=== PATIENT | female | born 1990 | race Caucasian/White ===

== ENCOUNTER 2017-10-15 21:39 | Emergency (ER) | payer SELFPAY ==
[2017-10-15 21:52] VITALS: BMI 20.2
--- NOTE | 2017-10-15 21:57 | DR.GENAD ---
HPI - PCP Primary Care Physician: [email or web address] - HPI Comment HPI Comment: PATIENT ILLNESS STARTED 9 DAYS AGO AND IS PROGRESSIVELY WORSE. SEEN AT [facility] IN [place] YESTERDAY. BLOOD WORK DONE WAS NORMAL WELL UPPER ABDOMEN US. SHE RETUN TO ED TODAY WITH ELEVATED TEMP AND AND WORSENING OF SYMTOM. - Complaint/Symptoms Chief Complaint Doctors Comments: UPPER ABDOMINAL PAIN RADIATING TO LOWER EXTREMITIES. FEVER. Chief Complaint:: PT STATES" I HAVE PAIN ALL ACROSS MY UPPER ABD AND IT GOES TO MY BACK AND DOWN MY LEGS". PT SEEN IN ED IN [place] YESTERDAY FOR SAME COMPLAINT - Nurses notes reviewed Nurses Notes Review: Yes - Source History Provided: Patient - Mode of Arrival Mode of Arrival: Ambulatory - Timing Onset of Chief Complaint: 10/06/17 Came on: Suddenly - Duration Duration: Constant Duration: Days - Severity Severity: Moderate PMH - PMH Past Medical History: No Past Surgical History: No - Family History History of Family Medical Conditions: Yes Family Medical History: Diabetes Mellitus, Cancer, OR, Coronary Artery Disease, Heart Failure, Hypertension - Social History Does patient currently use any type of tobacco product: No Have you used tobacco products in the last 12 months: Yes Does any household member use tobacco: No Alcohol Use: None Do you use any recreational Drugs:: No Lives With: Family Lives Where: Home - infectious screening In the last 2 months have you had wt loss of >10#?: NO Have you had fever, night sweats or hemotysis?: No Have you traveled outside the country in the last 6 months?: No Isolation: Standard ROS - Review of Systems Constitutional: Fever, Weakness, Fatigue Eyes: No Symptoms Reported. negative: Eye Pain, Discharge ENTM: No Symptoms Reported. negative: Ear Pain, Nose Discharge, Nose Congestion , Throat Pain Respiratoy: No Symptoms Reported. negative: Productive Cough, Short of Breath, Wheezing, Hemoptysis Cardiovascular: No Symptoms Reported. negative: Chest Pain Gastrointestinal/Abdominal: Abdominal Pain, Nausea Genitourinary: No Symptoms Reported. negative: Dysuria, Frequency, Hematuria Neurological: No Symptoms Reported, Headache, Weakness, Dizziness Musculoskeletal: Muscle Pain Integumentary: No Symptoms Reported Hematologic/Lymphatic: No Symptoms Reported Endocrine: No Symptoms Reported All Other Systems: Reviewed and Negative PE - Vital Signs Vitals: Temperature 100 F Pulse Rate [Left Brachial] 109 Pulse Rate 130 Respiratory Rate 16 Blood Pressure [Left Arm] 118/76 Blood Pressure 113/62 O2 Sat by Pulse Oximetry 99 - General Limitations: No Limitations General Appearance: Alert - Head Head Exam: Normal Inspection - Eyes Eye exam: Normal Appearance - ENT ENT Exam: Normal External Ear Exam External Ear Exam: Normal External Inspection TM/Canal Exam: Bilateral Normal Nose Exam: Normal Nose Exam Mouth Exam: Normal Inspection Throat Exam: Normal Inspection - Neck Neck Exam: Normal Inspection - Chest Chest Inspection: Symmetric Chest Wall Rise - Respiratory Respiratory Exam: Normal Lung Sounds Bilat Respiratory Exam: Bilateral Clear to Auscultation - Cardiovascular Cardiovascular Exam: Regular Rate, Normal Rhythm, Normal Heart Sounds - Abdominal Exam Abdominal Exam: Normal Bowel Sounds, Soft, Tenderness Abdominal Tenderness: RUQ, LUQ, Epigastrium - Extremities Extremities Exam: Normal Inspection - Back Back Exam: Normal Inspection - Neurologic Neurological Exam: Alert, Oriented X3 - Psychiatric Psychiatric Exam: Normal Affect, Normal Mood - Skin Skin Exam: Normal Color MDM - Additional Information Additional Information Obtained From: Family - Differential Diagnosis Differential Diagnosis: ABDOMINAL PAIN, FEVER, UTI, BOWEL OBSTRUCTION Course - Treatment Treatment: SEE ORDERS. - Education/Counseling Education/Counseling: Patient, Family, Education Educated On: Treatment, Diagnosis ROR - Labs Reviewed Laboratory Results Reviewed?: Yes Result Diagrams: 10/15/17 23:50 10/15/17 23:50 Laboratory: WBC 11.8 X10^3/uL (3.6-10.0) H 10/15/17 23:50 RBC 4.14 X10^6/uL (3.5-5.4) 10/15/17 23:50 Hgb 12.9 g/dL (12.0-16.0) 10/15/17 23:50 Hct 37.8 % (36.0-47.0) 10/15/17 23:50 MCV 91.3 fL (80.0-100.0) 10/15/17 23:50 MCH 31.1 pg (27.0-34.0) 10/15/17 23:50 MCHC 34.0 g/dL (33.0-35.0) 10/15/17 23:50 RDW 12.3 % (11.6-16.5) 10/15/17 23:50 Plt Count 265 X10^3/uL (150.0-450.0) 10/15/17 23:50 Plt Count Comment Adequate (ADEQUATE) 10/15/17 23:50 MPV 8.5 fL (7.4-11.0) 10/15/17 23:50 Neut % (Auto) 92.8 % (42.0-75.0) H 10/15/17 23:50 Lymph % (Auto) 3.8 % (21.0-51.0) L 10/15/17 23:50 [place] % (Auto) 2.9 % (0.0-13.0) 10/15/17 23:50 Eos % (Auto) 0.3 % (0.9-2.9) L 10/15/17 23:50 Baso % (Auto) 0.2 % (0.2-1.0) 10/15/17 23:50 Neut # (Auto) 10.9 x10^3/uL (2.2-4.8) H 10/15/17 23:50 Lymph # (Auto) 0.4 X10^3/uL (1.3-2.9) L 10/15/17 23:50 [place] # (Auto) 0.3 x10^3/uL (0.3-0.8) 10/15/17 23:50 Eos # (Auto) 0.0 x10^3/uL (0.0-0.2) 10/15/17 23:50 Baso # (Auto) 0.0 X10^3/uL (0.0-0.1) 10/15/17 23:50 Absolute Nucleated RBC 0.0 /100WBC 10/15/17 23:50 Total Counted 100 10/15/17 23:50 Neutrophils % (Manual) 87 % (39-76) H 10/15/17 23:50 Band Neutrophils % 5 % (0-10) 10/15/17 23:50 Lymphocytes % (Manual) 5 % (13-43) L 10/15/17 23:50 Monocytes % (Manual) 1 % (4-9) L 10/15/17 23:50 Eosinophils % (Manual) 1 % (0-6) 10/15/17 23:50 Plt Morphology Comment Normal (NORMAL) 10/15/17 23:50 RBC Morphology Normal (NORMAL) 10/15/17 23:50 Sodium 138 mmol/L (136-145) 10/15/17 23:50 Corrected Sodium TNP 10/15/17 23:50 Potassium 3.7 mmol/L (3.5-5.1) 10/15/17 23:50 Chloride 105 mmol/L (98-107) 10/15/17 23:50 Carbon Dioxide 23.0 mmol/L (21-32) 10/15/17 23:50 BUN 10 mg/dL (7-18) 10/15/17 23:50 Creatinine 0.87 mg/dL (0.55-1.02) 10/15/17 23:50 Est GFR (MDRD) Af Amer > 60 (>60) 10/15/17 23:50 Est GFR (MDRD) Non-Af > 60 (>60) 10/15/17 23:50 Glucose 109 mg/dL (65-99) H 10/15/17 23:50 Lactic Acid 1.2 mmol/L (0.4-2.0) 10/16/17 00:53 Calcium 7.7 mg/dL (8.5-10.1) L 10/15/17 23:50 Corrected Calcium TNP 10/15/17 23:50 Total Bilirubin 0.40 mg/dL (0.2-1.0) 10/15/17 23:50 AST 14 Units/L (15-37) L 10/15/17 23:50 ALT 27 Units/L (12-78) 10/15/17 23:50 Alkaline Phosphatase 40 Units/L (46-116) L 10/15/17 23:50 C-Reactive Protein 4.50 mg/L (0-3.0) H 10/16/17 00:53 Total Protein 6.5 g/dL (6.4-8.2) 10/15/17 23:50 Albumin 3.4 g/dL (3.4-5.0) 10/15/17 23:50 Globulin 3.1 g/dL (2.5-4.5) 10/15/17 23:50 Albumin/Globulin Ratio 1.1 Ratio (1.1-2.1) 10/15/17 23:50 Amylase 32 Units/L (25-115) 10/15/17 22:31 Lipase 44 Units/L (73-393) L 10/15/17 22:31 Specimen Type Clean catch urine 10/15/17 22:55 Urine Color Yellow (YELLOW) 10/15/17 22:55 Urine Appearance Slightly hazy (CLEAR) 10/15/17 22:55 Urine pH 6.5 (5.0 - 8.0) 10/15/17 22:55 Ur Specific [place] 1.015 (1.000-1.030) 10/15/17 22:55 Urine Protein Negative (NEGATIVE) 10/15/17 22:55 Urine Glucose (UA) Negative (NEGATIVE) 10/15/17 22:55 Urine Ketones Negative (NEGATIVE) 10/15/17 22:55 Urine Occult Blood 1+ (NEGATIVE) 10/15/17 22:55 Urine Nitrite Negative (NEGATIVE) 10/15/17 22:55 Urine Bilirubin Negative (NEGATIVE) 10/15/17 22:55 Urine Urobilinogen Normal (NORMAL) 10/15/17 22:55 Ur Leukocyte Esterase 1+ (NEGATIVE) 10/15/17 22:55 Urine RBC 0-2 /HPF (NONE SEEN) 10/15/17 22:55 Urine WBC 0-2 /HPF (NONE SEEN) 10/15/17 22:55 Ur Squamous Epith Cells Many /HPF (NEGATIVE) 10/15/17 22:55 Amorphous Sediment Trace /HPF (NEGATIVE) 10/15/17 22:55 Urine Bacteria Trace /HPF (NEGATIVE) 10/15/17 22:55 Ur Culture Indicated? No/not indicated 10/15/17 22:55 H. pylori IgG Antibody Negative (NEGATIVE) 10/15/17 22:31 Monoscreen Negative (NEGATIVE) 10/15/17 23:53 S. pyogenes (TEM-PCR) Not detected (NOT DETECT) 10/15/17 22:55 - XRAY XRAY Interpreted by: Radiologist XRAY Findings: REPORT DISCUSS WITH PATIENT. - Diagnosis Discharge Problem: Abdominal pain Qualifiers: Abdominal location: upper abdomen, unspecified Qualified Code(s): R10.10 - Upper abdominal pain, unspecified Fever Qualifiers: Fever type: unspecified Qualified Code(s): R50.9 - Fever, unspecified - Discharge Plan Disposition: 01 HOME, SELF-CARE Condition: Stable - Follow ups/Referrals Follow ups/Referrals: [facility],None [Primary Care Provider] - 10/16/17 Alexandru Harmon [STAFF PHYSICIAN] - 05/03/18 - Instructions Instructions: Abdominal Pain, Adult, [id number] Additional Instructions: RETURN TO ED IF WORSE.
[2017-10-15] MEDS ORDERED: PEPCID 20 MG IV PREMIX* 20 MG/50 ML BAG IV ONE ×2 (22:23→22:24)
[2017-10-15] MEDS ORDERED: TORADOL 30 MG VIAL IVP ONE (22:23)
[2017-10-15] MEDS ORDERED: NS 1000 ML 1,000 ML IV ONE (22:23)
[2017-10-15] MEDS ORDERED: NS 1000 ML 1,000 ML ONE (22:24)
[2017-10-15] MEDS ORDERED: TORADOL 30 MG VIAL ONE (22:24)
[2017-10-15 22:38] LABS: BASOPHILS % (AUTO) 0.2 % (0.2-1.0); EOSINOPHILS % (AUTO) 0.3 % (0.9-2.9); HEMATOCRIT 37.5 % (36.0-47.0); HEMOGLOBIN 12.9 g/dL (12.0-16.0); LYMPHOCYTES # (AUTO) 0.4 X10^3/uL (1.3-2.9); LYMPHOCYTES % (AUTO) 3.6 % (21.0-51.0); MEAN CORPUSCULAR HEMOGLOBIN 31.3 pg (27.0-34.0); MEAN CORPUSCULAR HGB CONC 34.4 g/dL (33.0-35.0); MEAN PLATELET VOLUME 7.9 fL (7.4-11.0); MONOCYTES # (AUTO) 0.5 x10^3/uL (0.3-0.8); MONOCYTES % (AUTO) 3.9 % (0.0-13.0); NEUTROPHILS # (AUTO) 10.7 x10^3/uL (2.2-4.8); PLATELET COUNT 257 X10^3/uL (150.0-450.0); RED BLOOD COUNT 4.12 X10^6/uL (3.5-5.4); RED CELL DISTRIBUTION WIDTH 12.4 % (11.6-16.5); WHITE BLOOD COUNT 11.6 X10^3/uL (3.6-10.0)
--- NOTE | 2017-10-15 22:50 | CT ---
CT OF THE ABDOMEN AND PELVIS WITHOUT CONTRAST HISTORY: Abdominal pain Comparison: None Technique: Multiple axial images of the abdomen and pelvis were obtained from the lung bases to the pubic symphy sis without the administration of IV contrast. Dose reduction techniques including Automated Exposur e Control (AEC) and adjustment of mA and kV were utlized. Findings: The heart is normal in size. There is no pericardial effusion. Lung bases are clear without focal con solidation, pleural effusion or pneumothorax. The sensitivity for focal lesion detection within the solid abdominal viscera is diminished without t he use of IV contrast. Liver and spleen are normal in size, and contour. No focal lesions. No ductal dilitation. Gallbladder is present. No calcified gallstones or gallbladder wall thickening. The pancreas is unremarkable. Ad renal glands are normal. Kidneys are normal in contour without hydronephrosis or nephrolithiasis. No bowel obstruction or inflammation. Appendix cannot be clearly seen No abnormal appearing mesenteri c or retroperitoneal lymph nodes. No free fluid or fluid collections. The bladder is normal in appearance. Uterus appears to be present. No free fluid or abnormal pelvic l ymph nodes. No aggressive osseous lesions. IMPRESSION: 1. No source of patient's abdominal pain is identified on this limited noncontrast examination. Reported By:
[2017-10-15 22:51] LABS: ALANINE AMINOTRANSFERASE 30 Units/L (12-78); ALBUMIN 4.1 g/dL (3.4-5.0); ALKALINE PHOSPHATASE 46 Units/L (46-116); AMYLASE 32 Units/L (25-115); ASPARTATE AMINO TRANSFERASE 18 Units/L (15-37); BLOOD UREA NITROGEN 12 mg/dL (7-18); CALCIUM 8.5 mg/dL (8.5-10.1); CARBON DIOXIDE 29.7 mmol/L (21-32); CHLORIDE 101 mmol/L (98-107); COR NA(FOR HYPERGLY) 138 mmol/L (136-145); CREATININE 0.99 mg/dL (0.55-1.02); LIPASE 44 Units/L (73-393); SODIUM 138 mmol/L (136-145); TOTAL PROTEIN 7.8 g/dL (6.4-8.2); eGFR BLACK RACES > 60 (>60); eGFR NON BLACK RACES > 60 (>60)
[2017-10-15 22:55] LABS: BAND NEUTROPHILS % 7 % (0-10); PLATELET MORPHOLOGY COMMENT NORMAL (NORMAL)
[2017-10-15 22:59] LABS: BILIRUBIN,URINE NEGATIVE (NEGATIVE); BLOOD/HEMOGLOBIN,URINE 1+ (NEGATIVE); GLUCOSE, URINE NEGATIVE (NEGATIVE); KETONES,URINE NEGATIVE (NEGATIVE); LEUKOCYTE ESTERASE ,URINE 1+ (NEGATIVE); NITRITES,URINE NEGATIVE (NEGATIVE); PH,URINE 6.5 (5.0 - 8.0); PROTEIN,URINE NEGATIVE (NEGATIVE); UROBILINOGEN,URINE NORMAL (NORMAL)
[2017-10-15 23:08] LABS: APPEARANCE,URINE SLIGHTLY HAZY (CLEAR); COLOR,URINE YELLOW (YELLOW)
[2017-10-15 23:09] LABS: AMORPHOUS SEDIMENT,UR TRACE /HPF (NEGATIVE); BACTERIA,URINE TRACE /HPF (NEGATIVE); RBC,URINE 0-2 /HPF (NONE SEEN); SQUAMOUS EPITHELIAL CELL,UR MANY /HPF (NEGATIVE)
[2017-10-15] MEDS ORDERED: OFIRMEV IV 1000 MG VIAL 1,000 MG/100 ML VIAL IV ONE ×2 (23:16)
[2017-10-16 01:18] VITALS: BP 118/76
[2017-10-16 01:20] LABS: C-REACTIVE PROTEIN 4.5 mg/L (0-3.0)
[2017-10-16 01:51] LABS: BASOPHILS % (AUTO) 0.2 % (0.2-1.0); EOSINOPHILS % (AUTO) 0.3 % (0.9-2.9); HEMATOCRIT 37.8 % (36.0-47.0); HEMOGLOBIN 12.9 g/dL (12.0-16.0); LYMPHOCYTES # (AUTO) 0.4 X10^3/uL (1.3-2.9); LYMPHOCYTES % (AUTO) 3.8 % (21.0-51.0); MEAN CORPUSCULAR HEMOGLOBIN 31.1 pg (27.0-34.0); MEAN CORPUSCULAR VOLUME 91.3 fL (80.0-100.0); MEAN PLATELET VOLUME 8.5 fL (7.4-11.0); MONOCYTES # (AUTO) 0.3 x10^3/uL (0.3-0.8); MONOCYTES % (AUTO) 2.9 % (0.0-13.0); NEUTROPHILS # (AUTO) 10.9 x10^3/uL (2.2-4.8); NEUTROPHILS % (AUTO) 92.8 % (42.0-75.0); PLATELET COUNT 265 X10^3/uL (150.0-450.0); RED BLOOD COUNT 4.14 X10^6/uL (3.5-5.4); RED CELL DISTRIBUTION WIDTH 12.3 % (11.6-16.5); WHITE BLOOD COUNT 11.8 X10^3/uL (3.6-10.0)
[2017-10-16 01:56] LABS: LACTIC ACID 1.2 mmol/L (0.4-2.0)
[2017-10-16 02:03] LABS: ALANINE AMINOTRANSFERASE 27 Units/L (12-78); ALBUMIN 3.4 g/dL (3.4-5.0); ALKALINE PHOSPHATASE 40 Units/L (46-116); ASPARTATE AMINO TRANSFERASE 14 Units/L (15-37); BLOOD UREA NITROGEN 10 mg/dL (7-18); CALCIUM 7.7 mg/dL (8.5-10.1); CHLORIDE 105 mmol/L (98-107); CREATININE 0.87 mg/dL (0.55-1.02); SODIUM 138 mmol/L (136-145); TOTAL PROTEIN 6.5 g/dL (6.4-8.2); eGFR BLACK RACES > 60 (>60); eGFR NON BLACK RACES > 60 (>60)
[2017-10-16 02:37] LABS: BAND NEUTROPHILS % 5 % (0-10); PLATELET MORPHOLOGY COMMENT NORMAL (NORMAL)
== END 2017-10-16 02:34 | disposition home or self-care (01) ==
LOC: ER 21:54
DX: R10.10 Upper abdominal pain, unspecified (principal); R50.9 Fever, unspecified
CPT/HCPCS: 36415; 74176; 80053; 81001; 82150; 83605; 83690; 85025; 86140; 86308; 86677; 87040; 87651; 96365; 96367; 96374; 96375; 99283; 99284; A4222; S0028; J1885